=== PATIENT | female | born 1985 | race Asian ===

== ENCOUNTER 2018-10-20 12:22 | Inpatient (IN) | payer BC ==
[~2018-10-20] VITALS: Ht 154.9 cm; Wt 71.7 kg
[~2018-10-20 12:22] MED LIST: BUPIVACAINE /PF 0.5% 30 ML VIAL INJ ONE; CEFAZOLIN 2 GM IVPB PREMIX 50 ML IV ONE; LR 1,000 ML IV.SOLN IV ONE; MORPHINE SULFATE 10MG/10ML PF AMP EP ONE; NS IRRIG SOLN 1000 ML IR ONE
[2018-10-20] MEDS ORDERED: OXYTOCIN/0.9 % SODIUM CHLORIDE 1,000 ML IV SCH (12:41)
[2018-10-20] MEDS ORDERED: LR 1,000 ML IV ONE (13:07)
[2018-10-20] MEDS: LR 1,000 ML IV SCH ×3 (13:45→22:20)
[2018-10-20 13:58] LABS: BASOPHILS % (AUTO) 0.4 % (0.0-2.0); EOSINOPHILS % (AUTO) 0.3 % (0.0-4.0); LYMPHOCYTES # (AUTO) 1.1 K/uL (1.0-5.5); LYMPHOCYTES % (AUTO) 11.9 % (20.5-51.5); MEAN CORPUSCULAR HEMOGLOBIN 30 pg (27-31); MEAN CORPUSCULAR HGB CONC 34 % (32-36); MEAN CORPUSCULAR VOLUME 90 fL (79.0-98.0); MONOCYTES # (AUTO) 0.5 K/uL (0.0-1.0); MONOCYTES % (AUTO) 5.1 % (1.7-9.3); NEUTROPHILS # (AUTO) 7.8 K/uL (1.8-7.7); NEUTROPHILS % (AUTO) 82.3 % (40.0-70.0); PLATELET COUNT (AUTO) 207 K/uL (130-430); RED BLOOD CELL COUNT(AUTO) 3.98 MIL/uL (4.2-6.2); RED CELL DISTRIBUTION WIDTH 13.3 % (9.0-15.0); WHITE BLOOD COUNT (AUTO) 9.4 K/uL (4.8-10.8)
[2018-10-20] MEDS ORDERED: NALBUPHINE HCL 10 MG/ML AMP IVP PRN (16:00)
[2018-10-20] MEDS ORDERED: FENT2mCg/mL-ROPIVA0.2%/NS EPID 150 ML EP SCH (16:00)
[2018-10-20] MEDS ORDERED: fentaNYL CITRATE/PF 100 MCG/2 ML AMP ONE (16:16)
[2018-10-20] MEDS ORDERED: ROPIVACAINE 0.2% 100 ML ONE (16:16)
[2018-10-20 18:14] VITALS: BP_SYST 123
[2018-10-21] MEDS ORDERED: ROPIVACAINE 0.2% 100 ML ONE (00:20)
[2018-10-21] MEDS ORDERED: LR 1,000 ML IV SCH ×2 (01:12→03:08)
[2018-10-21] MEDS ORDERED: CEFAZOLIN 2 GM IVPB PREMIX 50 ML IV ONE (01:15)
[2018-10-21] MEDS ORDERED: fentaNYL CITRATE/PF 100 MCG/2 ML AMP IVP PRN ×2 (02:30)
[2018-10-21] MEDS ORDERED: DIPHENHYDRAMINE INJ 50 MG/ML VIAL IVP PRN (02:30)
[2018-10-21] MEDS ORDERED: ONDANSETRON HCL 4 MG/2 ML VIAL IVP PRN (02:30)
[2018-10-21] MEDS ORDERED: NALBUPHINE HCL 10 MG/ML AMP IVP PRN (02:30)
[2018-10-21] MEDS ORDERED: MORPHINE SULFATE 10MG/10ML PF AMP EP SCH (02:30)
[2018-10-21] MEDS ORDERED: KETOROLAC TROMETHAMINE 60 MG/2 ML VIAL IM PRN (02:30)
[2018-10-21] MEDS ORDERED: NALOXONE HCL 0.4 MG/ML AMP (NARCAN) IVP PRN ×2 (02:30)
[2018-10-21] MEDS ORDERED: OXYTOCIN/0.9 % SODIUM CHLORIDE 1,000 ML IV ONE (03:08)
[2018-10-21] MEDS ORDERED: BISACODYL 10 MG/SUPPOSITORY RC PRN (03:15)
[2018-10-21] MEDS ORDERED: LANOLIN 7 GM OINT. TP PRN (03:15)
[2018-10-21] MEDS ORDERED: MEASLES,MUMPS&RUBELLA VACC/PF 12500 UNIT/0.5 ML VIAL SUBQ PRN (03:15)
[2018-10-21] MEDS ORDERED: SENNOSIDES/DOCUSATE SODIUM 1 TAB TABLET(SENOKOT-S) PO PRN (03:15)
[2018-10-21] MEDS ORDERED: RHO(D) IMMUNE GLOBULIN/MALTOSE 1500 UNITS/1.3 ML (WINHRO) IM PRN (03:15)
[2018-10-21] MEDS ORDERED: OXYCODONE/ACETAMINOPHEN 5-325 TABLET PO PRN (03:15)
[2018-10-21] MEDS ORDERED: ANUSOL 1 EA SUPP.RECT (PREPARATION H) RC PRN (03:15)
[2018-10-21 03:25] VITALS: BP_SYST 117
[2018-10-21] MEDS: IBUPROFEN 600 MG TABLET PO SCH ×3 (06:00→18:15)
[2018-10-21] MEDS: SIMETHICONE 80 MG TAB.CHEW PO PRN ×2 (07:00→11:40)
[2018-10-21] MEDS: LR 1,000 ML IV SCH (20:20)
[2018-10-21] MEDS ORDERED: TEMAZEPAM 15 MG CAPSULE PO PRN (21:00)
[2018-10-22] MEDS: SIMETHICONE 80 MG TAB.CHEW PO PRN ×4 (00:08→23:25)
[2018-10-22] MEDS: DOCUSATE SODIUM 100 MG CAPSULE PO PRN ×3 (00:08→23:25)
[2018-10-22] MEDS: IBUPROFEN 600 MG TABLET PO SCH ×3 (06:37→12:03)
[2018-10-22 06:43] LABS: BASOPHILS % (AUTO) 0.3 % (0.0-2.0); EOSINOPHILS # (AUTO) 0.1 K/uL (0.0-0.4); EOSINOPHILS % (AUTO) 0.7 % (0.0-4.0); HEMATOCRIT 30.7 % (36-48); HEMOGLOBIN 10.2 g/dL (12.0-16.0); LYMPHOCYTES # (AUTO) 1.5 K/uL (1.0-5.5); LYMPHOCYTES % (AUTO) 12.1 % (20.5-51.5); MEAN CORPUSCULAR HEMOGLOBIN 30 pg (27-31); MEAN CORPUSCULAR HGB CONC 33 % (32-36); MEAN CORPUSCULAR VOLUME 91 fL (79.0-98.0); MONOCYTES # (AUTO) 0.6 K/uL (0.0-1.0); MONOCYTES % (AUTO) 5.4 % (1.7-9.3); NEUTROPHILS # (AUTO) 9.8 K/uL (1.8-7.7); NEUTROPHILS % (AUTO) 81.5 % (40.0-70.0); PLATELET COUNT (AUTO) 179 K/uL (130-430); RED BLOOD CELL COUNT(AUTO) 3.39 MIL/uL (4.2-6.2); RED CELL DISTRIBUTION WIDTH 13.7 % (9.0-15.0); WHITE BLOOD COUNT (AUTO) 12.1 K/uL (4.8-10.8)
[2018-10-22] MEDS: OXYCODONE/ACETAMINOPHEN 5-325 TABLET PO PRN ×3 (09:06→23:24)
[2018-10-23] MEDS: IBUPROFEN 600 MG TABLET PO SCH ×3 (06:00→12:02)
[2018-10-23] MEDS: OXYCODONE/ACETAMINOPHEN 5-325 TABLET PO PRN ×2 (09:30→13:11)
[2018-10-23] MEDS: SIMETHICONE 80 MG TAB.CHEW PO PRN (09:30)
== END 2018-10-23 13:40 | disposition home or self-care (01) | DRG 788 ==
LOC: SPU 12:22
PROVIDERS: ADMIT Obstetrics & Gynecology; ATTEND Obstetrics & Gynecology
PROC: 10D00Z1 Extraction of Products of Conception, Low, Open Approach (ICD-10-PCS; principal; 2018-10-21 01:45)
DX: O76 Abnormality in fetal heart rate and rhythm complicating labor and delivery (principal); O42.92 Full-term premature rupture of membranes, unspecified as to length of time between rupture and onset of labor; O62.0 Primary inadequate contractions; Z37.0 Single live birth; Z3A.40 40 weeks gestation of pregnancy
CPT/HCPCS: 36415; 81002-TC; 85025; 86592; 86886; 86900; 86901; 94760; J0690; J2274; J2300; J2590; J2795; J3010; J3490; J7120